=== PATIENT | male | born 1985 | race Caucasian/White ===

== ENCOUNTER 2021-10-16 13:19 | Emergency (ER) | payer BC ==
[~2021-10-16] VITALS: Ht 172.7 cm; Wt 84.6 kg
[2021-10-16] MEDS ORDERED: ASPIRIN 325 MG TAB PO ONE (13:45)
[2021-10-16] MEDS ORDERED: ASPIRIN 325 MG TAB ONE (14:02)
== END 2021-10-16 14:47 | disposition home or self-care (01) ==
LOC: FSED 13:32
DX: R07.89 Other chest pain (principal)
CPT/HCPCS: 71046; 80053; 82553; 84484; 85025; 93005; 99283